=== PATIENT | male | born 1975 | race Caucasian/White ===

== ENCOUNTER 2022-02-05 14:02 | Emergency (ER) | payer OTHER ==
[~2022-02-05] VITALS: Ht 193 cm; Wt 91.6 kg
[2022-02-05 14:03] VITALS: BP 140/88
== END 2022-02-05 15:53 | disposition home or self-care (01) ==
LOC: ER 14:02
DX: S20.212A Contusion of left front wall of thorax, initial encounter (principal); S29.011A Strain of muscle and tendon of front wall of thorax, initial encounter; V43.52XA Car driver injured in collision with other type car in traffic accident, initial encounter; Y93.89 Activity, other specified; Y92.410 Unspecified street and highway as the place of occurrence of the external cause; Y99.8 Other external cause status
CPT/HCPCS: 71046; 71101